=== PATIENT | female | born 1955 | race Caucasian/White ===

== ENCOUNTER 2018-05-01 07:34 | Day surgery (SDC) | payer MEDICARE ==
[~2018-05-01 07:34] MED LIST: Acetaminophen 500 MG Tab PO ONE; Lactated Ringers 1,000 ML IV SCH; Scopolamine 1.5 MG Transdermal Patch TOP SCH; ceFAZolin 2 GM in Premix Bag 1 BAG IV ONE
[2018-05-01] MEDS ORDERED: Bupivacaine 0.5%/EPINEPHrine 1:200,000 50 ML MDV ONE (08:29)
[2018-05-01] MEDS ORDERED: Albuterol/Ipratropium 3.0-0.5 MG/3 ML Neb Soln NEB ONE (08:29)
[2018-05-01] MEDS ORDERED: Povidone-Iodine 10% Soln 118.25 ML Bottle ONE (08:29)
[2018-05-01] MEDS ORDERED: Ropivacaine 49.25 ML, Ketorolac 30 MG, EPINEPHrine 0.5 MG, cloNIDine 80 MCG, Sodium Chl... INJECT ONE ×5 (09:15)
[2018-05-01] MEDS ORDERED: Dexamethasone 4 MG/ML SDV ONE (10:26)
[2018-05-01] MEDS ORDERED: Ondansetron 4 MG/2 ML SDV ONE (10:26)
[2018-05-01] MEDS ORDERED: Succinylcholine 200 MG/10 ML MDV ONE (10:26)
[2018-05-01] MEDS ORDERED: fentaNYL 250 MCG/5 ML SDV ONE ×2 (10:26→11:06)
[2018-05-01] MEDS ORDERED: Neostigmine Methylsulfate 1 MG/ML 5 ML Syringe ONE (10:26)
[2018-05-01] MEDS ORDERED: Propofol 200 MG/20 ML SDV ONE (10:26)
[2018-05-01] MEDS ORDERED: Rocuronium 50 MG/5 ML Vial ONE (10:26)
[2018-05-01] MEDS ORDERED: Glycopyrrolate 0.2 MG/ML 5 ML MDV ONE (10:26)
--- NOTE | 2018-05-01 12:16 | OR ---
DATE OF PROCEDURE: 05/01/2018 PREOPERATIVE DIAGNOSIS: Retained painful hardware, left knee and thigh. POSTOPERATIVE DIAGNOSIS: Retained painful hardware, left knee and thigh. PROCEDURE PERFORMED: Removal of retained deep hardware, including distal femoral locking plate and screws. ANESTHESIA: General endotracheal intubation. FLUIDS: Lactated Ringer solution. ESTIMATED BLOOD LOSS: 200 mL. COMPLICATIONS: None. SPECIMEN: None. DISCHARGE DISPOSITION: Stable to PACU. INDICATIONS FOR THE PROCEDURE: The patient was seen preoperatively in the clinic. She had an intramedullary nail placed previously in 2014 and then she also had a distal femoral locking plate which broke and it was replaced in May of that year by Dr. Goff in [place]. Since that time, she has had kind of a deep ache and pain with range of motion that we both believe was associated with the plate. Risks and benefits of the procedure were explained to the patient, and informed consent was obtained. DETAILS OF PROCEDURE: The patient was seen preoperatively by myself, and the Anesthesia staff in the preoperative holding area, where the operative site was marked. She was brought to the operative suite by Anesthesia staff, where general anesthesia was administered. The left lower extremity was then prepped and draped in a sterile manner. Time-out was called identifying the correct patient, the correct procedure, the correct site, and that antibiotics had been begun within the appropriate period of time. I made an incision over the midpoint of the previous incision and then carried this down to the plate through the iliotibial band and then I used an elevator to clear off the plate. I was able to do less of an incision as I was only taking the screws out and not putting them in. I removed the screws using a small Frag pile driver operator as well as a small Frag torque. I then removed the plate and then removed some remaining soft tissue with the rongeurs. We then copiously irrigated with Betadine-infused irrigation and then closed the iliotibial band with #1 STRATAFIX, followed by subcutaneous closure with #2 STRATAFIX, skin venkata and a sterile dressing. The patient was then transferred to her hospital bed and taken to the PACU in a stable condition. Venkat Morales DO /[id number]
[2018-05-01] MEDS ORDERED: Acetaminophen/oxyCODONE 325-5 MG Tab PO PRN (12:36)
[2018-05-01] MEDS ORDERED: Ketorolac 60 MG/2 ML SDV IM ONE (12:36)
[2018-05-01] MEDS ORDERED: Ketorolac 60 MG/2 ML SDV ONE (12:44)
== END 2018-05-01 13:35 | disposition home or self-care (01) ==
LOC: JP.SDS 07:34
PROVIDERS: ATTEND Orthopaedic Surgery
DX: T84.84XA Pain due to internal orthopedic prosthetic devices, implants and grafts, initial encounter (principal); F17.210 Nicotine dependence, cigarettes, uncomplicated; Z79.82 Long term (current) use of aspirin; Z79.84 Long term (current) use of oral hypoglycemic drugs; Z79.899 Other long term (current) drug therapy; Z88.5 Allergy status to narcotic agent; Z91.040 Latex allergy status
CPT/HCPCS: 20680; 76001; 94640; A9270; J0690; J1100; J1885; J2405; J2704; J2710; J3010; J7120; J7620; J0330

== ENCOUNTER 2018-05-31 12:14 | Emergency (ER) | payer MEDICARE ==
[2018-05-31] MEDS: Sodium Chloride 0.9% 1,000 ML IV ONE (13:09)
[2018-05-31] MEDS: Acetaminophen 500 MG Tab PO ONE ×2 (13:11→18:10)
--- NOTE | 2018-05-31 13:11 | EDM.PDOC ---
<Corinne Shaffer - Last Filed: 05/31/18 18:09> ED HPI GENERAL MEDICAL PROBLEM - General Chief Complaint: Fever Stated Complaint: INFEECTED CUT Time Seen by Provider: 05/31/18 12:45 Source of Information: Reports: Patient History Limitations: Reports: No Limitations - History of Present Illness INITIAL COMMENTS - FREE TEXT/NARRATIVE: Surgery on left knee to remove problematic hardware. Incision site is leaking/ draining large amounts of fluid and patient can not bear weight to walk. Onset: Sudden Onset Date: 05/31/18 Duration: Hour(s):, Getting Worse, Other (sent from clinic to be evaluated in ER ) Location: Reports: Lower Extremity, Left Quality: Reports: Pressure Severity: Moderate Improves with: Reports: None Worsens with: Reports: Movement Context: Reports: Other (recent surgery 05/01/2018) - Related Data Allergies Allergy/AdvReac Type Severity Reaction Status Date / Time codeine Allergy Tachycardia Verified 05/31/18 12:27 latex Allergy Rash Verified 05/31/18 12:27 Home Meds: Home Meds Aspirin [Adult Low Dose Aspirin EC] 81 mg PO DAILY 10/13/17 [History] Calcium Carbonate/Vitamin D3 [Calcium 600 + Vit D 200] 1 tab PO DAILY 10/13/17 [ History] EPINEPHrine [Epipen] 0.3 ml IM ASDIRECTED PRN 10/13/17 [History] Ferrous Sulfate [Iron] 325 mg PO DAILY 10/13/17 [History] Multivitamin [Daily Multiple Vitamin] 1 cap PO DAILY 10/13/17 [History] Rosuvastatin Calcium 20 mg PO BEDTIME 10/13/17 [History] Sertraline HCl [Zoloft] 200 mg PO DAILY 10/13/17 [History] metFORMIN [Glucophage] 500 mg PO DAILY 10/13/17 [History] buPROPion [buPROPion XL] 150 mg PO DAILY 04/19/18 [History] Acetaminophen [Tylenol] 650 mg PO Q6HR PRN 05/01/18 [History] Albuterol Sulfate [Proventil Hfa] 2 puff INH Q4HR PRN 05/01/18 [History] Albuterol/Ipratropium [DuoNeb 3.0-0.5 MG/3 ML] 3 ml INH TID PRN 05/01/18 [ History] Alendronate Sodium [Fosamax] 70 mg PO WEEKLY 05/01/18 [History] Past Medical History HEENT History: Reports: Cataract, Impaired Vision Other HEENT History: wears glasses Respiratory History: Reports: Bronchitis, Recurrent, COPD, Pneumonia, Recurrent Gastrointestinal History: Reports: None Genitourinary History: Reports: None 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: Musculoskeletal History: Reports: Arthritis, Fracture, Other (See Below) Other Musculoskeletal History: lt femur; left elbow; left hip; left knee Psychiatric History: Reports: Depression Endocrine/Metabolic History: Reports: Diabetes, Type II Hematologic History: Reports: Iron Deficiency - Infectious Disease History Infectious Disease History: Reports: Chicken Pox, Measles, Mumps - Past Surgical History Head Surgeries/Procedures: Reports: None HEENT Surgical History: Reports: Cataract Surgery Respiratory Surgical History: Reports: None GI Surgical History: Reports: Bariatric Procedure, Cholecystectomy, Colonoscopy , EGD Female Surgical History: Reports: Breast Biopsy, Tubal Ligation, Other (See Below) Other Female Surgeries/Procedures: bladder lift Endocrine Surgical History: Reports: None Musculoskeletal Surgical History: Reports: Hip Replacement, Knee Replacement, Shoulder Surgery, Other (See Below) Other Musculoskeletal Surgeries/Procedures:: surgery left femur x2, left elbow x2; hip replacement 11/2017; left knee replacement 2006; bilat shoulder rotator cuff Dermatological Surgical History: Reports: None Social & Family History - Family History Cardiac: Reports: Hypertension, [place] Respiratory: Reports: COPD Musculoskeletal: Reports: Arthritis, Back pain, Chronic Neurological: Reports: Alzheimers Disease Endocrine/Metabolic: Reports: Diabetes, type II Immunologic: Reports: SLE Oncologic: Reports: Esophageal, Lung, Other (See Below) Other Oncologic Family History: small cell sarcoma - Tobacco Use Smoking Status *Q: Current Every Day Smoker Years of Tobacco use: 50 Packs/Tins Daily: 2 Used Tobacco, but Quit: No Second Hand Smoke Exposure: No - Caffeine Use Caffeine Use: Reports: Coffee - Recreational Drug Use Recreational Drug Use: No ED ROS GENERAL - Review of Systems Review Of Systems: See Below Constitutional: Reports: Fever HEENT: Reports: No Symptoms Respiratory: Reports: No Symptoms. Denies: Shortness of Breath Cardiovascular: Reports: No Symptoms. Denies: Chest Pain Musculoskeletal: Reports: Leg Pain, Other (left knee swollen and unable to bear weight) Skin: Reports: Erythema, Wound Psychiatric: Reports: No Symptoms ED EXAM, GENERAL - Physical Exam Free Text/Narrative:: Left knee is warm,swollen and tender to touch. Recent lateral incision line has opening at distal end of the incision with clear fluid seeping from site. Culture sent to the lab. AROM less than 45 degrees flexion. Exam Limited By: No Limitations General Appearance: Alert, WD/WN, No Apparent Distress Respiratory/Chest: No Respiratory Distress, Lungs Clear Cardiovascular: Normal Peripheral Pulses, Regular Rate, Rhythm, No Gallop, No Murmur GI/Abdominal: Normal Bowel Sounds, Soft, Non-Tender, No Organomegaly, No Distention Extremities: Normal Capillary Refill, Joint Swelling, Limited Range of Motion, Increased Warmth, Redness. No: Normal Inspection, Normal Range of Motion, Non- Tender Neurological: Alert, Oriented, CN II-XII Intact, Normal Cognition. No: Normal Gait Psychiatric: Normal Affect, Normal Mood Skin Exam: Warm, Increased Warmth, Wound/Incision Course - Vital Signs Text/Narrative:: Labs CBC, CMP, Lactic Acid, Wound Cultures, blood cultures obtained IV fluids initiated for positive sepsis screen IV Levaquin initiated for infection Last Recorded V/S: Last Vital Signs Temp 37.9 C 05/31/18 18:07 Pulse 83 05/31/18 17:45 Resp 18 05/31/18 17:45 BP 119/50 L 05/31/18 17:45 Pulse Ox 97 05/31/18 17:45 - Orders/Labs/Meds Labs: Laboratory Tests 05/31/18 05/31/18 05/31/18 Range/Units 12:59 13:00 13:00 WBC 17.6 H (4.5-11.0) K/uL RBC 4.74 (3.30-5.50) M/uL Hgb 13.9 (12.0-15.0) g/dL Hct 41.8 (36.0-48.0) % MCV 88 (80-98) fL MCH 29 (27-31) pg MCHC 33 (32-36) % Plt Count 176 (150-400) K/uL Neut % (Auto) 87 H (36-66) % Lymph % (Auto) 4 L (24-44) % Glynn % (Auto) 8 H (2-6) % Eos % (Auto) 0 L (2-4) % Baso % (Auto) 0 (0-1) % Sodium 134 L (140-148) mmol/L Potassium 3.3 L (3.6-5.2) mmol/L Chloride 100 (100-108) mmol/L Carbon Dioxide 23 (21-32) mmol/L Anion Gap 14.3 H (5.0-14.0) mmol/L BUN 12 (7-18) mg/dL Creatinine 0.7 (0.6-1.0) mg/dL Est Cr Clr Drug Dosing TNP Estimated GFR (MDRD) > 60 (>60) Glucose 118 H (74-106) mg/dL Lactic Acid 1.5 (0.4-2.0) mmol/L Calcium 8.2 L (8.5-10.1) mg/dL Total Bilirubin 0.8 D (0.2-1.0) mg/dL AST 23 (15-37) U/L ALT 15 (12-78) U/L Alkaline Phosphatase 48 (46-116) U/L Total Protein 6.5 (6.4-8.2) g/dL Albumin 3.3 L (3.4-5.0) g/dL Globulin 3.2 (2.3-3.5) g/dL Albumin/Globulin Ratio 1.0 L (1.2-2.2) Meds: Medications Discontinued Medications Generic Name Dose Route Start Last Admin Trade Name Germánq PRN Reason Stop Dose Admin Acetaminophen 1,000 mg 05/31/18 13:08 05/31/18 13:11 Tylenol Extra Strength PO 05/31/18 13:09 1,000 mg ONETIME ONE Administration Acetaminophen 1,000 mg 05/31/18 18:07 05/31/18 18:10 Tylenol Extra Strength PO 05/31/18 18:08 1,000 mg ONETIME ONE Administration Sodium Chloride 1,000 mls @ 1,000 mls/hr 05/31/18 13:01 05/31/18 13:09 Normal Saline IV 05/31/18 14:00 1,000 mls/hr .BOLUS ONE Administration Levofloxacin/Dextrose 500 mg/ 100 mls @ 100 mls/hr 05/31/18 14:06 05/31/18 14 :15 Premix IV 05/31/18 15:05 100 mls/hr ONETIME ONE Administration Sodium Chloride 1,000 mls @ 999 mls/hr 05/31/18 14:45 08/09/18 14:59 Normal Saline IV 999 mls/hr ASDIRECTED ANGEL Administration Nicotine 21 mg 05/31/18 17:39 05/31/18 17:47 Habitrol TRDERM 05/31/18 17:40 21 mg ONETIME ONE Administration - Radiology Interpretation Free Text/Narrative:: Moderate to large knee joint effusion per radiologist on the CT scan of Left knee - Re-Assessments/Exams Free Text/Narrative Re-Assessment/Exam: 05/31/18 15:17 Discussion related to infection of knee and need for IV antibiotics. Patient is in agreement with potential admission and hospitalist will be consulted. 05/31/18 15:29 Hospitalist consulted and requesting surgical backup as well which was obtained from Dr. Naylor pending CT scan result. Due to nature of infection and multi -organism infection it is felt that an orthopedic surgeon is necessary as well as Infectious disease options at this time. Pt will need antibiotics for an extended period of time and will need close observation of the infection with potential bone involvement. 05/31/18 17:27 Discussion with patient regarding transfer to [place] for knee infection and need for Orthopedic surgeon at this time. Pt in agreement. Dr. Danyell Vega hospitalist accepting with Dr. Gray to consult. Arrangements being made for patient to transfer by ambulance to [place]. 05/31/18 18:03 Departure - Departure Disposition: DC/Tfer to Acute Hospital 02 Condition: Fair Clinical Impression: Infection of knee, Sepsis - Discharge Information Instructions: Bone and Joint Infections, Adult Referrals: Frederic Naylor MD [Primary Care Provider] - Forms: ED Department Discharge Care Plan Goals: transfer to [facility] <Maria Alejandra Escalante - Last Filed: 06/04/18 19:03> ED ROS GENERAL - Review of Systems Review Of Systems: See Below ED EXAM, GENERAL - Physical Exam Exam: See Below Course - Re-Assessments/Exams Free Text/Narrative Re-Assessment/Exam: 05/31/18 16:53 pt had both gram positive and gram neg bacteria from the drainage from the knee. A cat scan of the knee showed a joint effusion that may communicate with the soft tissue infection. There is a concern that this pt needs a orthopedist to care for her in the event that the joint needs cleaning out. 05/31/18 16:59 06/04/18 19:01 Because of the complicated issue she may need the consult of infectious diease. Departure - Departure Time of Disposition: 18:15
[2018-05-31] MEDS: Levofloxacin/Dextrose 5%-Water 500 MG in Premix Bag 1 BAG IV ONE (14:15)
[2018-05-31] MEDS: Sodium Chloride 0.9% 1,000 ML IV SCH (14:59)
[2018-05-31] MEDS: Nicotine 21 MG/24 Hr Patch TRDERM ONE (17:47)
== END 2018-05-31 18:13 ==
LOC: JP.ED 12:14 → JP.MS 16:23 → UNDOADMIN 16:23 → JP.ED 18:13
DX: T84.54XA Infection and inflammatory reaction due to internal left knee prosthesis, initial encounter (principal); J44.9 Chronic obstructive pulmonary disease, unspecified; E11.9 Type 2 diabetes mellitus without complications; F17.210 Nicotine dependence, cigarettes, uncomplicated; Z91.040 Latex allergy status; Z88.5 Allergy status to narcotic agent
CPT/HCPCS: 36415; 73700; 80053; 83605; 85025; 87040; 87070; 87077; 87186; 87205; 96361; 96365; 99284; A9270; J1956; J7030